=== PATIENT | male | born 1980 | race African-American/Black ===

== ENCOUNTER 2021-05-28 10:37 | Emergency (ER) | payer OTHER, SELFPAY ==
--- NOTE | ~2021-05-28 | XR_ITS ---
EXAMINATION: LEFT FOOT AND LEFT HAND. CLINICAL INFORMATION: Pain COMPARISON: None TECHNIQUE: 3 views of left foot and 3 views of left hand. FINDINGS: LEFT FOOT: There is no visible acute fracture, dislocation or subluxation. There is a small calcaneal heel and retrocalcaneal enthesophytes. The ankle mortise and subtalar joints are normal. LEFT HAND: There is no visible acute fracture, dislocation or subluxation. The soft tissues are normal. XR/XR hand LT min 3V IMPRESSION: Unremarkable left foot exam except for retrocalcaneal and calcaneal heel enthesophyte. No acute fracture or dislocation visualized in the left foot or left hand.
--- NOTE | ~2021-05-28 | XR_ITS ---
EXAMINATION: LEFT FOOT AND LEFT HAND. CLINICAL INFORMATION: Pain COMPARISON: None TECHNIQUE: 3 views of left foot and 3 views of left hand. FINDINGS: LEFT FOOT: There is no visible acute fracture, dislocation or subluxation. There is a small calcaneal heel and retrocalcaneal enthesophytes. The ankle mortise and subtalar joints are normal. LEFT HAND: There is no visible acute fracture, dislocation or subluxation. The soft tissues are normal. XR/XR foot LT min 3V IMPRESSION: Unremarkable left foot exam except for retrocalcaneal and calcaneal heel enthesophyte. No acute fracture or dislocation visualized in the left foot or left hand.
[2021-05-28 10:45] VITALS: BP 178/100; PULSE 92; O2SAT 98
[2021-05-28 10:55] VITALS: BP 178/100; PULSE 92; RESP 18; TEMP 36.8; O2SAT 98; BMI 28.0
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
== END 2021-05-28 14:13 | disposition home or self-care (01) ==
PROVIDERS: Emergency Provider Emergency Medicine
DX: S60.222A Contusion of left hand, initial encounter (principal); M79.672 Pain in left foot; X58.XXXA Exposure to other specified factors, initial encounter; Y93.9 Activity, unspecified; Y92.9 Unspecified place or not applicable; Y99.9 Unspecified external cause status
CPT/HCPCS: 73130; 73630; 99283

== ENCOUNTER 2021-09-03 18:49 | Emergency (ER) | payer OTHER, SELFPAY ==
[2021-09-03 19:00] VITALS: BP 132/68; PULSE 120; RESP 22; TEMP 37; O2SAT 96; BMI 29.2
--- NOTE | 2021-09-03 19:00 | ED.GENADULT ---
HPI - General Adult General Chief complaint: ETOH/Substance Use Stated complaint: drug use Time Seen by Provider: 09/03/21 18:57 Source: patient and EMS Mode of arrival: EMS Limitations: no limitations History of Present Illness HPI narrative: Patient is a 40 year old male presenting to the emergency department today after drug ingestion. Patient states that he smoked what he thought was heroin but believes that it was stimulant and now he is having a hard time sitting still. Patient denies any dizziness, lightheadedness, abdominal pain, nausea, vomiting, fever, chills, blurry vision, double vision, loss of vision, chest pain, difficulty breathing, shortness of breath, back pain, night sweats, pain with urination, increased urinary frequency, increased urinary urgency, blood in his urine or stool, syncope or a near syncopal episode, recent trauma or falls, bowel incontinence, bladder incontinence, bowel retention, bladder retention, or any other complaints at this time. Onset (ago): minute(s) Radiation: non-radiation Relieving factors: none Exacerbating factors: none Associated symptoms: denies other symptoms Treatments prior to arrival: none Related Data Allergies Allergy/AdvReac Type Severity Reaction Status Date / Time No Known Allergies Allergy Verified 05/28/21 10:58 Review of Systems Constitutional: Constitutional: Reports no additional constitutional complaints, Denies chills, Denies fever(s) and Denies night sweats Eyes: Eyes: Reports no additional eye complaints, Denies blurry vision, Denies change in vision, Denies diplopia, Denies eye discharge, Denies loss of vision and Denies eye pain ENT: Denies dizziness Cardiovascular: Cardiovascular: Reports no additional cardiovascular complaints, Denies chest pain, Denies lightheadedness, Denies Loss of Consciousness and Denies dyspnea Respiratory: Respiratory: Reports no additional respiratory complaints and Denies dyspnea Gastrointestinal: Gastrointestinal: Reports no additional gastrointestinal complaints, Denies abdominal pain, Denies melena, Denies hematochezia, Denies change in bowel habits and Denies change in stool character Genitourinary: Genitourinary: Reports no additional male genitourinary complaints, Denies hematuria, Denies oliguria, Denies difficulty urinating, Denies dysuria, Denies urinary frequency, Denies urinary hesitancy, Denies urinary incontinence and Denies urinary urgency Musculoskeletal: Musculoskeletal: Reports no additional musculoskeletal complaints, Denies numbness and Denies tingling Neurologic: Denies dizziness, Denies loss of vision, Denies numbness and Denies tingling Psychiatric: Psychiatric: Reports no additional psychiatric complaints Endocrine: Endocrine: Reports no additional endocrine complaints Hematologic/Lymphatic: Hematologic/Lymphatic: Reports no additional hematologic/lymphatic complaints Allergic/Immunologic: Allergic/Immunologic: Reports no additional allergic/immunologic complaints PMFSH Past Medical History Attestation statement: The following information was validated with the patient. Source: old records reviewed Medical History No known health problems Social History Social History Advance Directives: No Advance Directives Information Provided: No Physical Exam ED Vital Signs: Vital Signs - 24 hr 09/03/21 19:00 Temperature 98.6 F Pulse Rate 120 H Respiratory Rate 22 H Blood Pressure 132/68 Pulse Oximetry 96 BMI result Body Mass Index 29.2 Const General: cooperative, no acute distress, alert and awake Nutritional Appearance: well nourished Orientation/consciousness: patient oriented x3 Limitations: no limitations HENMT Head: Yes normal to inspection and Yes atraumatic Ears: hearing grossly normal bilaterally and external ears normal General nose exam: Normal external nose present, no nasal discharge noted and no epistaxis Face and sinus: Yes normal facial exam, No abrasion and No laceration Mouth: Normal oral and palatal mucosa present, no drooling and no muffled voice Eyes General: appearance normal, both eyes and all related structures Periorbital: periorbital findings normal Eyelids: Yes eyelids normal Conjunctivae: conjunctivae normal Pupils: Equal, round and reactive pupils present EOM: EOMs intact bilaterally Neck Neck: Yes normal visual inspection, Yes full ROM and Yes no lymphadenopathy Chest Chest palpation & inspection: normal inspection of the chest Resp Effort & Inspection: normal respiratory effort and able to speak in complete sentences Auscultation: clear to auscultation bilaterally Cardio Rate: regular rate Rhythm: regular rhythm GI Inspection: Yes normal to inspection Neuro General: patient oriented x3 and moves all extremities Cranial nerves: Yes Equal, round and reactive pupils present Cognition (Neuro): normal cognition Motor exam (neuro): 5/5 motor strength present throughout Sensory Exam: Normal double simultaneous stimulation for sensation Coordination: [id number] test normal Extrem General: Yes normal to inspection, Yes full ROM and Yes capillary refill normal Psych Appearance: grossly normal Mental Status: mental status grossly normal Affect: normal affect Attitude: cooperative Thought process: Normal thought process present Thought content: Normal thought content present Insight: Good insight present (Psych) Medical Decision Making MDM Narrative Medical decision making narrative: Patient is a 40 year old male presenting to the emergency department today after using a stimulant substance. Patient's physical exam was unremarkable. Patient declined any lab work to be done and was adamant he only wanted something to help him calm down. Patient declined wanting to speak to CARE team or having Narcan perscribed/sent home with him. I explained my physical exam findings to the patient. I answered all questions asked by the patient. Patient received PO Ativan which he stated helped his symptoms significantly. I stressed the importance of the patient taking his medication as prescribed. I stressed the importance of the patient following up with his primary care provider. I stressed the importance of the patient returning to the emergency department immediately if his symptoms were to worsen or if he were to develop any dizziness, shortness of breath, difficulty breathing, chest pain, blurry vision, loss of vision, nausea, vomiting, abdominal pain, fever, chills, back pain, or any other complaints. Patient verbalized agreement and understanding with this treatment plan and discharge. Differential Diagnosis Differential Diagnosis: substance abuse Medical Records Medical records reviewed: Yes I reviewed the patient's medical records. Discharge Plan Discharge Clinical Impression: Substance use Patient Disposition: Home, Self-Care Instructions: Polysubstance Abuse (ED) Additional Instructions: Follow up with your primary care provider. Return to the emergency department immediately if your symptoms worsen or if you develop any dizziness, shortness of breath, difficulty breathing, chest pain, blurry vision, loss of vision, nausea, vomiting, abdominal pain, fever, chills, back pain, or any other complaints. Referrals: Gale Carlton MD [Primary Care Provider] - 2 days Print Language: Mongolian
[2021-09-03] MEDS: LORazepam 1 MG TABLET 2 MG PO (19:19)
[2021-09-03 23:59] VITALS: BP 112/72; PULSE 81; RESP 16; O2SAT 97
== END 2021-09-04 01:47 | disposition home or self-care (01) ==
PROVIDERS: Emergency Provider Internal Medicine; PCP Internal Medicine
DX: F11.10 Opioid abuse, uncomplicated (principal)
CPT/HCPCS: 99284

== ENCOUNTER 2024-04-20 14:48 | Outpatient (AMB) | payer OTHER, SELFPAY ==
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
== END 2024-04-20 15:16 | disposition home or self-care (01) ==
LOC: HO.HUSH 14:48
PROVIDERS: PCP Internal Medicine; Visit Provider Urology
DX: N20.0 Calculus of kidney (principal)
CPT/HCPCS: 99203

== ENCOUNTER → 2024-04-20 14:48 | Outpatient (BNVA) | payer OTHER, SELFPAY | PROVIDERS: PCP Internal Medicine; Visit Provider Urology | DX: N20.0 Calculus of kidney (principal) | CPT/HCPCS: 99202 ==

== ENCOUNTER 2024-09-14 13:23 | Outpatient (REF) | payer OTHER, SELFPAY ==
--- NOTE | ~2024-09-14 | XR_ITS ---
EXAMINATION: XR ABDOMEN 1 VIEW (KUB) HISTORY: N20.0 - Calculus of kidney COMPARISON: There are no prior studies for comparison. FINDINGS: Three supine views of the abdomen are submitted. The bowel gas pattern is unremarkable, without evidence of mechanical obstruction. There are surgical clips in the right upper quadrant. Rounded calcifications in the left hemipelvis likely represent phleboliths. There are no abnormal soft tissue masses. The bones are intact. XR/XR KUB IMPRESSION: Probable phleboliths in the left hemipelvis. No suspicious calcifications are identified. If there remains clinical concern for renal or ureteral calculi, unenhanced CT could be performed. Electronically signed by: Kvng Guzman MD 09/14/2024 03:55 PM EDT
--- OUTSIDE RECORDS SUMMARY | 2024-09-14 15:33 | XMS_ITS | Clinical Summary ---
Author Organization [facility] it Address [address] [place] [address] Care Team Providers Care Manager Enterprise Name Role Phone Unavailable Primary Care Provider Unavailabl e Social History Tobacco Use Types Packs/Day Years Used Date Smoking Tobacco: Never Assessed Sex and Gender Information Value Date Recorded Sex Assigned at Not on file Legal Sex Male 12:40 AM EST Gender Identity Not on file Sexual Orientation Not on file Plan of Treatment Health Maintenance Due Date Last Done Comments DTaP,Tdap,and Td Vaccines (1 - Tdap) 1997 Hepatitis B Vaccines (1 of 3 - 19+ 3-dose series) 1997 Cholesterol Screening (Lipid Panel) 05/11/2022 Colorectal Cancer Screening: Colonoscopy 05/11/2022 Depression Screening 05/11/2022 HIV Screening 05/11/2022 Hepatitis C Screening 05/11/2022 Social Influencers of Health Screening 05/11/2022 COVID-19 Vaccine (2023-2 5 season) 2024 Influenza Vaccine (#1) 2024 HIB Vaccines Aged Out No longer eligi ble based on patient's age to complete this topic HPV Vaccines Aged Out No longer eligi ble based on patient's age to complete this topic Hepatitis A Vaccines Aged Out No long er eligible based on patient's age to complete this topic IPV Vaccines Aged Out No longer eligi ble based on patient's age to complete this topic MMR Vaccines Aged Out No longer eligi ble based on patient's age to complete this topic Meningococcal ACWY Vaccine Aged Out N o longer eligible based on patient's age to complete this topic Meningococcal B Vaccine Aged Out No l onger eligible based on patient's age to complete this topic Pneumococcal Vaccine: Pediat rics (0 to 5 Years) and At-Risk Patients (6 to 64 Years) Aged Out No longer eligible b ased on patient's age to complete this topic RSV Immunization Patients Un epi 20 months Aged Out No longer eligible b ased on patient's age to complete this topic Varicella Vaccines Aged Out No longer eligible based on patient's age to complete this topic
--- OUTSIDE RECORDS SUMMARY | 2024-09-14 15:33 | XMS_ITS | Patient Health Record ---
Author Organization [facility] Address [address], [place] [id number] Care Team Providers Care Convention Planner Name Role Phone [facility] Primary Care Provider Adriane Snyder Unavailable [phone] Reason For Referral No Information Encounters Encounter Location Date Provider Diagnosis [facility] [address], [place] [phone] 04/04/2024 Adriane Paz Plan Of Treatment No Information Insurance Providers Payer Name Payer Address Payer Phone Subscriber Number Group Number Insured Name Patient Relationship to Insured Coverage Start Date Coverage End Date [facility] [employer] [address] [place] [id number] Elvis Preciado Self - patient is the insured 3 [facility] [address] [place] [address] [phone] [id number] Elvis Preciado Self - patient is the insured 3
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
== END 2024-09-14 13:24 | disposition home or self-care (01) ==
LOC: HO.XRAY 13:23
PROVIDERS: Visit Provider Nurse Practitioner Family
DX: N20.0 Calculus of kidney (principal)
CPT/HCPCS: 74018

== ENCOUNTER → 2024-09-14 13:29 | Outpatient (BNV) | payer OTHER, SELFPAY | PROVIDERS: Visit Provider Radiology Diagnostic Radiology | DX: N20.0 Calculus of kidney (principal) | CPT/HCPCS: 74018 ==

== ENCOUNTER 2024-11-14 09:33 | Outpatient (AMB) | payer OTHER, SELFPAY ==
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
--- OUTSIDE RECORDS SUMMARY | 2024-11-14 10:09 | XMS_ITS | Clinical Summary ---
Author Organization [facility] Address [address] [place] [address] Phone Care Team Providers Care Globe Tester Name Role Phone Maritza Renee MD Primary Care Provider [phone] Allergies No known active allergies Medications methocarbamoL (ROBAXIN) 750 mg tablet Take 1 tablet (750 mg total) by mouth 4 (four) times a day for 10 days. 20 each 11/08/2024 Active Encounters Date Type Department Care Team Description 11/07/2024 10:54 PM EDT - 11/08/2024 2:48 AM EDT Emergency [facility] Emergency [address] [place] [address] Left wrist pain (Primary Dx); Lumbar back pain Discharge Disposition: Home or Self Care from Last 3 Months Social History Tobacco Use Types Packs/Day Years Used Date Smoking Tobacco: Never Assessed Sex and Gender Information Value Date Recorded Sex Assigned at Not on file Legal Sex Male 12:40 AM EST Gender Identity Not on file Sexual Orientation Not on file Last Filed Vital Signs Vital Sign Reading Time Taken Comments Blood Pressure 141/89 11/07/2024 9:54 PM EDT Pulse 97 11/07/2024 9:54 PM EDT Temperature 37 ??C (98.6 ??F) 11/07/2024 9:54 PM EDT Respiratory Rate 18 11/07/2024 9:54 PM EDT Oxygen Saturation 96% 11/07/2024 9:54 PM EDT Inhaled Oxygen Concentration - - Weight 107 kg (235 lb) 11/07/2024 9:54 PM EDT Height 175.3 cm (5' 9 ) 11/07/2024 9:54 PM EDT Body Mass Index 34.7 11/07/2024 9:54 PM EDT Plan of Treatment Health Maintenance Due Date Last Done Comments Diabetes: Annual GFR (Glomerular Filtration Rate) 1978 Diabetes: Annual Foot Exam 1988 Diabetes: Annual Retina Eye Exam 1988 Hepatitis A Vaccines (1 of 2 - Risk 2-dose series) 1997 Hepatitis B Vaccines (1 of 3 - 19+ 3-dose series) 1997 Pneumococcal Vaccine: Pediatrics (0 to 5 Years) and At-Risk Patients (6 to 64 Years) (2 of 2 - PCV) 05/19/2014 05/19/2013 DTaP,Tdap,and Td Vaccines (2 - Td or Tdap) 05/23/2020 05/23/2010 Cholesterol Screening (Lipid Panel) 05/11/2022 Colorectal Cancer Screening: Colonoscopy 05/11/2022 Depression Screening 05/11/2022 HIV Screening 05/11/2022 Hepatitis C Screening 05/11/2022 Social Influencers of Health Screening 05/11/2022 COVID-19 Vaccine ( season) 2024 06/27/2022, 03/18/2021, 02/25/2021 Diabetes: Annual Urine Albumin-Creatinine Ratio (uACR) 11/08/2024 Diabetes: Blood Sugar Control Test (HGBA1C) 11/08/2024 Hypertension/CHF/CAD Annual BMP Blood Test 11/08/2024 Influenza Vaccine (Season Ended) 2025 06/27/2022, 06/30/2014, 02/25/2013, Additional history exists HIB Vaccines Aged Out No longer eligi [...] to complete this topic RSV Immunization Patients Under 20 months Aged Out No longer eligible based on patient's age to complete this topic Varicella Vaccines Aged Out No longer eligible based on patient's age to complete this topic Insurance [employer] [employer] [place] [place] Care Teams Globe Tester Relationship Specialty Start Date End Date Maritza Renee MD [address] [place] [id number] PCP - General Internal Medicine 11/07/24
== END 2024-11-14 10:09 | disposition home or self-care (01) ==
LOC: HO.HUSH 09:33
PROVIDERS: PCP Internal Medicine; Visit Provider Nurse Practitioner Family
DX: N20.0 Calculus of kidney (principal); R53.83 Other fatigue; R68.82 Decreased libido; Z13.9 Encounter for screening, unspecified
CPT/HCPCS: 99213

== ENCOUNTER → 2024-11-14 09:33 | Outpatient (BNVA) | payer OTHER, SELFPAY | PROVIDERS: PCP Internal Medicine; Visit Provider Nurse Practitioner Family | DX: N20.0 Calculus of kidney (principal); N28.1 Cyst of kidney, acquired; E29.1 Testicular hypofunction; R53.83 Other fatigue; R68.82 Decreased libido; E11.9 Type 2 diabetes mellitus without complications | CPT/HCPCS: 81003; 99212 ==

== ENCOUNTER 2025-01-07 02:10 | Emergency (ER) | payer OTHER, SELFPAY ==
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
--- NOTE | ~2025-01-07 | CT_ITS ---
CLINICAL HISTORY: fall, AMS, etoh? CT head without contrast Comparison: None provided Findings: No intra-axial mass, midline shift, hydrocephalus, or acute hemorrhage. No significant atrophy-like change or white matter disease. The visualized paranasal sinuses and mastoid air cells are normal. The orbits are unremarkable. No skull fracture. Subtle chronic appearing nasal bone fracture. IMPRESSION: 1. No acute intracranial findings. This document has been electronically signed by: Gustavo Henderson MD on 01/07/2025 05:49:27
[2025-01-07 02:17] VITALS: BP 180/70; PULSE 130; O2SAT 98
[2025-01-07 02:20] VITALS: PULSE 109; RESP 16; TEMP 36.6; O2SAT 96; BMI 26.6
--- NOTE | 2025-01-07 02:38 | PC.NURSE ---
Pt removed c-collar and cardiac leads off chest. Pt refuses to have them replaced. Awaiting md lanier
--- NOTE | 2025-01-07 03:44 | PC.NURSE ---
appears to be resting quietly in room with even and unlabored respirations, no obvious signs/symptoms of distress noted. call bowman within reach, awaiting provider
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
--- OUTSIDE RECORDS SUMMARY | 2025-01-07 04:44 | XMS_ITS | Patient Health Record ---
Author Organization [facility] Address [address], [place] [id number] Care Team Providers Care Museum Attendant Name Role Phone [facility] Primary Care Provider Adriane Paz Unavailable [phone] Reason For Referral No Information Encounters Encounter Location Date Provider Diagnosis [facility] [address] [place], [place] [id number] 04/04/2024 Adriane Paz Plan Of Treatment No Information Insurance Providers Payer Name Payer Address Payer Phone Subscriber Number Group Number Insured Name Patient Relationship to Insured Coverage Start Date Coverage End Date [facility] [employer] [address] [place] [id number] Ilana Elvis Self - patient is the insured 3 [facility] [address] [place] [phone] [id number] Elvis Preciado Self - patient is the insured 3
--- NOTE | 2025-01-07 04:59 | PC.NURSE ---
in ct scan at this time
[2025-01-07 05:12] LABS: MANUAL DIFF FLAG NO
[2025-01-07 05:13] LABS: Hematocrit 38.4 % (42.0-52.0); Hemoglobin 12.7 g/dl (14.0-18.0); Imm Gran Abs Auto 0.03 X10*3/uL (0.00-0.03); Imm Gran Pct Auto 0.3 % (0.0-0.4); Lymphocytes Absolute Auto 3.0 X10*3/uL (1.2-4.9); Mean Corpuscular HGB Conc 33.1 g/dl (31.0-36.0); Mean Corpuscular Hemoglobin 26.0 pg (27.0-33.0); Mean Corpuscular Volume 78.7 fL (80.0-98.0); NRBC Abs Auto 0.000 X10*3/uL (0.0-0.012); NRBC Pct Auto 0.0 /100WBC (0.0-0.2); Platelet Count 209 X10*3/uL (160-400); Red Blood Count 4.88 X10*6/uL (4.60-5.80); White Blood Count 9.6 X10*3/uL (4.8-10.8)
[2025-01-07 05:30] LABS: Alanine Aminotransferase 35 U/L (0-40); Albumin Level 4.1 g/dL (3.5-5.0); Alkaline Phosphatase 82 U/L (39-117); Anion Gap 13 (12-20); Aspartate Amino Transferase 30 U/L (5-37); Blood Urea Nitrogen 12 mg/dL (9-16); Calcium 8.8 mg/dL (8.4-10.2); Carbon Dioxide 27 mmol/L (22-29); Chloride 108 mmol/L (96-108); Creatinine Clr Calc Pharmacy 111.2; Estimated Glomerular Filt Rate > 60; Magnesium 1.9 mg/dL (1.6-2.6); Potassium 3.5 mmol/L (3.3-5.1); Sodium 144 mmol/L (135-145); Total Protein 6.3 g/dL (6.5-8.0)
[2025-01-07 05:34] LABS: Troponin-I High Sensitivity 6.5 ng/L (<3.5-35.0)
[2025-01-07 06:30] VITALS: BP 120/75; PULSE 80; RESP 16; TEMP 36.6; O2SAT 97
--- NOTE | 2025-01-07 08:24 | PC.NURSE ---
continues to rest quietly in room. patient continues to deny si/hi states he feels comfortable to be discharged home.
[2025-01-07 09:01] VITALS: BP 113/86; PULSE 73; RESP 18; TEMP 37; O2SAT 97
[2025-01-07 09:09] VITALS: BP 113/86; PULSE 73; RESP 18; TEMP 37; O2SAT 97
== END 2025-01-07 09:11 | disposition home or self-care (01) ==
PROVIDERS: Emergency Provider Emergency Medicine; PCP Internal Medicine
DX: F14.90 Cocaine use, unspecified, uncomplicated (principal); F91.8 Other conduct disorders; Y35.833A Legal intervention involving a conducted energy device, suspect injured, initial encounter; F32.A Depression, unspecified; I10 Essential (primary) hypertension; E11.9 Type 2 diabetes mellitus without complications; F20.9 Schizophrenia, unspecified
CPT/HCPCS: 36415; 70450; 80048; 80076; 80307; 83735; 84484; 85025; 93005; 99284; 99291

== ENCOUNTER → 2025-01-07 02:45 | Outpatient (BNV) | payer OTHER, SELFPAY | PROVIDERS: Emergency Provider Emergency Medicine; PCP Internal Medicine; Visit Provider Internal Medicine Cardiovascular Disease | DX: R94.31 Abnormal electrocardiogram [ECG] [EKG] (principal) | CPT/HCPCS: 93010 ==

== ENCOUNTER → 2025-01-07 04:17 | Outpatient (BNV) | payer OTHER, SELFPAY | PROVIDERS: Emergency Provider Emergency Medicine; PCP Internal Medicine; Visit Provider Radiology Vascular & Interventional Radiology | DX: R41.82 Altered mental status, unspecified (principal) | CPT/HCPCS: 70450 ==